=== PATIENT | female | born 1945 | race Caucasian/White ===

== ENCOUNTER → 2019-12-26 08:45 | Outpatient (CLI) | payer MEDICARE, BC | END | disposition home or self-care (01) | LOC: D.CT 08:30 | PROVIDERS: ATTEND Nurse Practitioner Family | DX: I65.23 Occlusion and stenosis of bilateral carotid arteries (principal); R09.89 Other specified symptoms and signs involving the circulatory and respiratory systems ==

== ENCOUNTER 2020-02-14 08:11 | Inpatient (IN) | payer MEDICARE, BC ==
[~2020-02-14] VITALS: Ht 152.4 cm; Wt 41.7 kg
[2020-02-14] MEDS ORDERED: PLAVIX75 MG PO (08:38)
[2020-02-14] MEDS ORDERED: ANORO ELLIPTA1 EACH INH (08:39)
[2020-02-14] MEDS ORDERED: NORVASC2.5 MG PO (08:39)
[2020-02-14] MEDS ORDERED: ATROVENT 0.02%2.5 ML UPD (08:42)
[2020-02-14] MEDS ORDERED: LOSARTAN-HCTZ1 EAC1 PO (08:42)
[2020-02-14] MEDS ORDERED: DIPROLENE 0.05%60 M1 TOPICAL (08:43)
[2020-02-14] MEDS ORDERED: BUPROPION HCL100 MG PO (08:44)
[2020-02-14] MEDS ORDERED: MIRALAX17 GM PO (08:44)
[2020-02-14] MEDS ORDERED: BAYER CHEWABLE81 MG PO (08:44)
[2020-02-14] MEDS ORDERED: MERIBIN5 MG PO (08:45)
[2020-02-14 10:01] LABS: APTT 28.9 SECONDS (22.8-39.4); INR 0.93 (0.85-1.17); PROTIME 12.4 SECONDS (11.6-15.0)
[2020-02-14 10:02] LABS: ALBUMIN 3.9 g/dL (3.4-5.0); ALKALINE PHOSPHATASE 81 U/L (30-120); ALT (SGPT) 25 U/L (10-68); BILIRUBIN - TOTAL 0.35 mg/dL (0.2-1.3); CALC OSMOLALITY 278 mosm/kg (275-300); CALCIUM 8.5 mg/dL (8.5-10.1); CARBON DIOXIDE 31.9 mmol/L (21.0-32.0); CHLORIDE - SERUM 103 mmol/L (98-107); CREATININE - SERUM 0.6 mg/dL (0.6-1.3); GLUCOSE 86 mg/dL (74-106); POTASSIUM - SERUM 3.9 mmol/L (3.5-5.1); PROTEIN - SERUM 7.4 g/dL (6.4-8.2); SODIUM 138 mmol/L (136-145); UREA NITROGEN 24 mg/dL (7-18); eGFR NON AFRICAN AMERICAN > 90 mL/min (90-120)
[2020-02-14 10:24] LABS: HEMATOCRIT 46.4 % (36.0-48.0); HEMOGLOBIN 15.2 g/dL (12-16); MCH 30.3 pg (26.0-34.0); MCHC 32.8 g/dL (31.0-37.0); MCV 92.4 fL (80.0-100.0); MEAN PLATELET VOLUME 10.1 fL (7.4-10.4); RBC 5.02 10x6/uL (4.00-5.40); RDW 13.1 % (11.5-14.5); WBC 7.5 10x3/uL (4.8-10.8)
[2020-02-14 12:40] LABS: BILIRUBIN NEGATIVE (NEGATIVE); GLUCOSE NEGATIVE (NEGATIVE); KETONE NEGATIVE (NEGATIVE); NITRITE POSITIVE (NEGATIVE); UROBILINOGEN NORMAL (NORMAL)
[2020-02-14 12:41] LABS: BACTERIA MANY /hpf (NEGATIVE); EPITHELIAL CELLS RARE /hpf (0-5); RED CELLS - URINE RARE /hpf (0-5); WHITE CELLS - URINE 0-5 /hpf (NEGATIVE)
[2020-02-18 09:12] VITALS: BP 149/69; Ht 152.4 cm; Wt 41.7 kg
[2020-02-18 14:12] LABS: BACTERIA MANY /hpf (NEGATIVE); BILIRUBIN NEGATIVE (NEGATIVE); EPITHELIAL CELLS OCC /hpf (0-5); GLUCOSE NEGATIVE (NEGATIVE); KETONE MODERATE mg/dL (NEGATIVE); NITRITE POSITIVE (NEGATIVE); RED CELLS - URINE NONE SEEN /hpf (0-5); UROBILINOGEN NORMAL (NORMAL); WHITE CELLS - URINE 0-5 /hpf (NEGATIVE)
--- NOTE | 2020-02-18 14:35 | NUR ---
SANDWICH TRAY SERVED TO PATIENT, PATIENT ADVISED THAT SHE MAY GET DRESSED WHEN FINISHED EATING
--- NOTE | 2020-02-18 15:13 | NUR ---
PATIENT DEPARTS OUTPATIENT DEPARTMENT AMBULATORY, STATES WANTS TO WAIT FOR DAUGHTER AT THE ENTRANCE. WRITTEN INSTRUCTIONS GIVEN TO CHERRY DIPPER ANTIBIOTIC AT PHARMACY AND START TAKING AND FOLLOW UP WITH DR GEORGES'S NURSE REGARDING RESCHEDULING SURGERY, STATES UNDERSTANDING
== END 2020-02-18 15:13 | disposition home or self-care (01) | DRG 68 ==
LOC: D.SDCHOLD 02-18 07:30
PROVIDERS: ADMIT Thoracic Surgery (Cardiothoracic Vascular Surgery); ATTEND Thoracic Surgery (Cardiothoracic Vascular Surgery)
DX: I65.29 Occlusion and stenosis of unspecified carotid artery (principal); Z53.9 Procedure and treatment not carried out, unspecified reason

== ENCOUNTER → 2020-03-05 14:42 | Outpatient (CLI) | payer MEDICARE, BC ==
[2020-02-18 09:12] VITALS: BMI 18.0
[~2020-03-05 14:42] MED LIST: ANORO ELLIPTA1 EACH INH; ATROVENT 0.02%2.5 ML UPD; BAYER CHEWABLE81 MG PO; BUPROPION HCL100 MG PO; DIPROLENE 0.05%60 M1 TOPICAL; LOSARTAN-HCTZ1 EAC1 PO; MERIBIN5 MG PO; MIRALAX17 GM PO; NORVASC2.5 MG PO; PLAVIX75 MG PO
[2020-03-05 15:12] LABS: BILIRUBIN NEGATIVE (NEGATIVE); KETONE NEGATIVE (NEGATIVE); NITRITE NEGATIVE (NEGATIVE); UROBILINOGEN NORMAL (NORMAL)
[2020-03-05 15:21] LABS: BACTERIA FEW /hpf (NONE SEEN); EPITHELIAL CELLS 0-5 /hpf (0-5); WHITE CELLS - URINE 0-5 /hpf (0-5)
== END | disposition home or self-care (01) ==
LOC: D.LAB 14:42
PROVIDERS: ATTEND Thoracic Surgery (Cardiothoracic Vascular Surgery)
DX: N39.0 Urinary tract infection, site not specified (principal)

== ENCOUNTER → 2020-03-31 19:34 | Outpatient (CLI) | payer MEDICARE, BC ==
[2020-02-18 09:12] VITALS: BMI 18.0
== END | disposition home or self-care (01) ==
LOC: D.LABREF 19:34
PROVIDERS: ATTEND Urology
DX: R82.90 Unspecified abnormal findings in urine (principal)